=== PATIENT | female | born 1950 | race Caucasian/White ===

== ENCOUNTER 2019-11-23 07:08 | Inpatient (IN) | payer MEDICARE, BC ==
[~2019-11-23 07:08] MED LIST: Isosulfan Blue 5 ML SDV ONE
[2019-11-23] MEDS ORDERED: Naloxone 0.4 MG/ML SDV IVPUSH PRN (07:21)
[2019-11-23] MEDS ORDERED: Naloxone 0.4 MG/ML SDV IV PRN (07:26)
[2019-11-23] MEDS ORDERED: Acetaminophen 500 MG Tab PO ONE (07:30)
[2019-11-23] MEDS ORDERED: Dextrose 5%-Lactated Ringers 1,000 ML IV SCH (08:00)
[2019-11-23] MEDS ORDERED: fentaNYL 250 MCG/5 ML SDV ONE (08:24)
[2019-11-23] MEDS ORDERED: Midazolam 1 MG/ML 2 ML SDV ONE (08:25)
[2019-11-23] MEDS ORDERED: Rocuronium 50 MG/5 ML Vial ONE (08:25)
[2019-11-23] MEDS ORDERED: Neostigmine Methylsulfate 1 MG/ML 5 ML Syringe ONE (08:25)
[2019-11-23] MEDS ORDERED: Glycopyrrolate 0.2 MG/ML 5 ML MDV ONE (08:25)
[2019-11-23] MEDS ORDERED: Propofol 200 MG/20 ML SDV ONE (08:25)
[2019-11-23] MEDS ORDERED: Ondansetron 4 MG/2 ML SDV ONE (08:25)
[2019-11-23] MEDS ORDERED: Ketamine 500 MG/5 ML MDV IV SCH (08:30)
[2019-11-23] MEDS ORDERED: Ketamine 50 MG in Sodium Chloride 0.9% 49.5 ML IV SCH (08:30)
[2019-11-23] MEDS ORDERED: Clindamycin Phosphate 900 MG in Sodium Chloride 0.9% 100 ML IV ONE (09:00)
[2019-11-23] MEDS ORDERED: fentaNYL/Normal Saline 600 MCG/30 ML PCA Vial IV PRN (09:00)
[2019-11-23] MEDS ORDERED: Lactated Ringers 1,000 ML ONE (11:36)
[2019-11-23] MEDS ORDERED: Scopolamine 1.5 MG Transdermal Patch ONE (12:12)
[2019-11-23] MEDS ORDERED: Mupirocin Oint 22 GM Tube ONE (12:19)
[2019-11-23] MEDS ORDERED: hydrOXYzine HCL 100 MG/2 ML SDV IM PRN (14:05)
[2019-11-23] MEDS ORDERED: Cyclobenzaprine 10 MG Tab PO PRN (14:06)
[2019-11-23] MEDS ORDERED: Ondansetron 4 MG/2 ML SDV IVPUSH PRN (14:06)
[2019-11-23] MEDS: SCOPOLAMINE PATCH CHECK TOP SCH (15:15)
[2019-11-23] MEDS: Hypromellose 0.3% Ophth Soln 15 ML Bottle EYEBOTH SCH ×2 (15:25→22:07)
[2019-11-23] MEDS: Dextrose 5%-Lactated Ringers 1,000 ML IV SCH (16:35)
[2019-11-23] MEDS: Clindamycin Phosphate 900 MG in Sodium Chloride 0.9% 100 ML IV SCH (17:53)
[2019-11-24] MEDS: Dextrose 5%-Lactated Ringers 1,000 ML IV SCH (01:03)
[2019-11-24] MEDS: Clindamycin Phosphate 900 MG in Sodium Chloride 0.9% 100 ML IV SCH (01:04)
[2019-11-24] MEDS: Hypromellose 0.3% Ophth Soln 15 ML Bottle EYEBOTH SCH ×5 (06:22→21:13)
[2019-11-24] MEDS ORDERED: Sodium Chloride 0.9% 10 ML Syringe IV SCH (07:30)
[2019-11-24] MEDS ORDERED: Acetaminophen 500 MG Tab PO ONE (07:30)
[2019-11-24] MEDS: Aspirin 81 MG Tab.EC PO SCH (08:36)
[2019-11-24] MEDS: SCOPOLAMINE PATCH CHECK TOP SCH (08:37)
[2019-11-24] MEDS: Mupirocin Oint 22 GM Tube TOP SCH (08:41)
[2019-11-24] MEDS: Acetaminophen 325 MG Tab PO SCH ×2 (14:14→19:47)
[2019-11-24] MEDS: oxyCODONE 5 MG Tab PO PRN (18:32)
[2019-11-25] MEDS: Acetaminophen 325 MG Tab PO SCH ×4 (01:54→20:11)
[2019-11-25] MEDS: Hypromellose 0.3% Ophth Soln 15 ML Bottle EYEBOTH SCH ×4 (06:13→22:38)
[2019-11-25] MEDS: oxyCODONE 5 MG Tab PO PRN ×2 (07:23→20:11)
--- NOTE | 2019-11-25 08:48 | PN ---
DATE OF SERVICE: 11/25/2019 SUBJECTIVE: Jenn is postoperative day #2. She has been up ambulating. Pain has been controlled with oxycodone as well as Tylenol. She has begun to be taught how to do her WILLIAM drain at home. Vital signs have been stable. Temp max of 99.2. Oral intake 1400, urine output 2100. WILLIAM drains have put out a light red drainage of 25, 40, 59, and 26 respectively. REVIEW OF SYSTEMS: Remainder of review of systems negative for any pertinent positives and negatives. OBJECTIVE: GENERAL: Jenn is a pleasant 68-year-old female. Alert, orientated, color pale. VITAL SIGNS: TPR is 98.6, 81, 16, blood pressure 104/48. HEENT: Negative. NECK: Supple. HEART: Regular rate and rhythm. LUNGS: Clear. SKIN: Dressings were removed. Staple lines on right and left mastectomy sites intact. There has been no drainage. WILLIAM drains x4 intact and draining as above. ABDOMEN: Negative. EXTREMITIES: Without peripheral edema. ASSESSMENT: Bilateral modified radical mastectomy with sentinel lymph node biopsy, bilateral injection procedure for sentinel lymph nodes. Postoperative diagnosis: Cancer, right breast, hot family history of breast cancer. Date of surgery: 11/23/2019. Surgeon: Jordan Kaufman MD. PLAN: 1. Dressing was removed. 2. Communication order 2 written for the patient to be taught how to strip, drain, measure, and record WILLIAM drains separately. Continue same treatment plan. 3. Planned discharge in aKameron Rm PA-C /[id number]
[2019-11-25] MEDS: Mupirocin Oint 22 GM Tube TOP SCH (10:01)
[2019-11-25] MEDS: SCOPOLAMINE PATCH CHECK TOP SCH (10:01)
[2019-11-25] MEDS: Aspirin 81 MG Tab.EC PO SCH (10:01)
[2019-11-25] MEDS ORDERED: Magnesium Hydroxide 400 MG/5 ML Susp 30 ML Cup PO PRN (12:01)
[2019-11-25] MEDS ORDERED: Magnesium Hydroxide 400 MG/5 ML Susp 30 ML Cup PO ONE (13:00)
[2019-11-25] MEDS ORDERED: Bisacodyl 5 MG Tab PO ONE (13:00)
[2019-11-26] MEDS: Acetaminophen 325 MG Tab PO SCH ×2 (02:18→08:48)
[2019-11-26] MEDS: Hypromellose 0.3% Ophth Soln 15 ML Bottle EYEBOTH SCH (05:45)
[2019-11-26] MEDS: oxyCODONE 5 MG Tab PO PRN (05:48)
[2019-11-26] MEDS: SCOPOLAMINE PATCH CHECK TOP SCH (08:49)
[2019-11-26] MEDS: Aspirin 81 MG Tab.EC PO SCH (08:49)
[2019-11-26] MEDS: Mupirocin Oint 22 GM Tube TOP SCH (08:49)
[2019-11-26] MEDS ORDERED: Scopolamine 1.5 MG Transdermal Patch TOP SCH (09:00)
--- NOTE | 2019-11-26 10:41 | PN ---
DATE OF SERVICE: 11/24/2019 The patient is postop day #1 from bilateral mastectomies with sentinel node biopsies. Clinically she has done well overnight. 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 Will order oral pain medication today with some scheduled Tylenol and oxycodone on a p.r.n. basis and saline lock her IV and go to a regular diet. The dressings we will leave in place for today and probably get those off tomorrow, and she may be ready for discharge home tomorrow. Jordan Kaufman MD /[id number]
--- NOTE | 2019-11-26 10:49 | DISCH ---
ADMISSION DIAGNOSES: 1. Right breast cancer. 2. Dyslipidemia. 3. Gastroesophageal reflux disease. 4. Sinan-en-Y gastric bypass surgery. 5. Unspecified surgical malabsorption. 6. B12 deficiency. DISCHARGE DIAGNOSES: Bilateral modified radical mastectomy with sentinel lymph node biopsy, bilateral injection for sentinel lymph node analysis. POSTOPERATIVE DIAGNOSES: 1. Right breast cancer. 2. Family history of breast cancer. Date of surgery: 11/23/2019. Surgeon: Jordan Kaufman MD. HISTORY: Jenn Negro is a pleasant 68-year-old female with a positive biopsy for right breast cancer. After preoperative evaluation and discussion of possible risks and possible complications, and review of family history, Jenn agreed to proceed with surgical procedure. HOSPITAL COURSE: Surgery was on 11/23/2019. She had no operative complications. On postoperative day #1, pain was well controlled, up ambulating, started on a diet. On postoperative day #2, dressing was removed. She was able to shower. Teaching was done for home WILLIAM drain care. On postoperative day #3, she was able to be discharged to home without any complications. PHYSICAL EXAMINATION: GENERAL: Jenn Negro is a 68-year-old female. VITAL SIGNS: Height is 5 feet 1.5 inches, weight is 221 pounds, BMI is 41. TPR is 96.4, 66, 16, blood pressure 119/63. HEENT: Negative. NECK: Supple. HEART: Regular rate and rhythm. LUNGS: Clear. ABDOMEN: Negative. EXTREMITIES: Without peripheral edema. SKIN: Bilateral mastectomy incisions, albina intact. Incisions look good. 4 WILLIAM drains are intact draining a light red drainage of 10, 90, 35 and 10 respectively. No seroma or hematoma is noted on that incision site. DISPOSITION: Discharged to home. CONDITION: Stable and improving. FOLLOWUP: Appointment with Jordan Kaufman MD, at [facility] on 12/02/2019 at 10 a.m. HOME MEDICATIONS: 1. Tylenol 650 mg every 6 hours p.r.n. pain. 2. Milk of magnesia 30 mL, take 1 daily for p.r.n. constipation, 2 doses were sent home. 3. Bactroban ointment, sent home with the patient to use a small amount b.i.d. around WILLIAM drain tubing site. 4. Oxycodone 5 mg 1 every 6 hours p.r.n. pain #28. Resume home medications: 1. Aspirin 81 mg oral daily. 2. Caltrate 600 + D3 1 twice daily. 3. B12 2500 mcg sublingual daily. 4. B complex 1 daily. 5. Ferrous sulfate 325 mg daily. 6. Fish oil 2 capsules oral daily. 7. Magnesium oxide 200 mg oral daily. 8. Multivitamin. 9. Centrum Silver Women's tablet 1 daily. 10.Propylene glycol 1 drop in each eye 4 times a day. Discontinue taking the Register while taking oxycodone. Discontinue vitamin D3 gummies to avoid bezoar. DIET: Usual diet as tolerated. Drink 8 to 10 glasses of water a day. ACTIVITY AFTER DISCHARGE: No lifting over 10 pounds for 6 weeks. Other activity after discharge, walk at least 6 times daily. Driving after discharge, do not drive for 1 week and while on pain medication. Shower/bathing, may shower. DISCHARGE INSTRUCTIONS: Notify provider if any fever, increased pain, nausea, or vomiting. Wound incision care, keep site clean and dry. Strip, empty, measure and record WILLIAM drains each separately 4 times a day and bring record of drainage to clinic appointment. Use incentive spirometer 10 times every hour while awake. Notify provider if any fever, increased pain, nausea, or vomiting.
--- NOTE | 2019-11-26 14:24 | OR ---
DATE OF PROCEDURE: 11/23/2019 SURGEON: Jordan Kaufman MD PREOPERATIVE DIAGNOSES: 1. Carcinoma, right breast. 2. Strong family history of breast carcinoma. POSTOPERATIVE DIAGNOSES: 1. Carcinoma, right breast. 2. Strong family history of breast carcinoma. PROCEDURE: Bilateral modified radical mastectomies and sentinel lymph node biopsies (21727 x2 and 05658 x2). ANESTHESIA: General. ELECTRICAL UNIT REBUILDER: Jeanna Rm PA-C INDICATIONS FOR PROCEDURE: A 68-year-old female, recently presenting with abnormal mammogram findings in the right breast. Core biopsy was obtained which showed an infiltrating ductal carcinoma. After preoperative evaluation and discussion, she wished to proceed with a mastectomy with a sentinel lymph node biopsy and more extensive lymph node dissection should the sentinel nodes be positive. The patient has a very strong family history with 8 members on her father's side having breast carcinoma. Genetic testing was negative, but given that very intense family history, her concern is that there may be unidentified direct variant making her family predispose to breast carcinoma, and given this, she is to have a prophylactic mastectomy on the left side. Dickens node biopsy will be done on this side as well as if an occult carcinoma is identified in the left breast with the breast being absent, there is no satisfactory way to do a sentinel lymph node mapping and identification. Potential risks of the procedure including bleeding, infection, obvious cosmetic deformity, possible need for chemotherapy or radiation treatment, and final pathology with remote possibility of cardiopulmonary, septic, or hemorrhagic complications leading to were discussed, and the patient wishes to proceed. DETAILS OF PROCEDURE: The patient was taken to the operating room and placed in a supine position. After general endotracheal anesthesia was induced, additionally 2 mL of Isosulfan and blue dye were injected underneath the lateral aspect of the nipple-areolar complex in the subdermal location. The right breast, axilla, and surrounding areas were then prepped and draped. A transversely oriented elliptical incision was made and carried down through the skin and subcutaneous tissue. This included the biopsy site as well as the area overlying the tumor as well as nipple-areolar complex. Subcutaneous flaps were then raised superiorly, laterally, inferiorly, and medially to the usual extent. As one approached the lateral aspect of the upper incision, the stained lymphatics could be identified and these were then traced down to end of the axilla where grouping of blue-stained nodes was identified. These were excised with electrocautery and sent for frozen section. The frozen section report came back negative for any evidence of metastatic disease. The remainder of the breast was then reflected off the chest wall in continuity with pectoralis major fascia and the area irrigated with saline solution. 2 Nikolai-Rosas drains were then placed inferior to the main incision and draped across the bed of the pectoral muscles and into the axilla. The incision was then closed with some 3-0 Vicryl stitch deep and then albina for the skin. Drains were fixed with some 3-0 nylon stitch. Attention was then taken to the left-side. The area was also prepped and draped and the moist skin had 2 mL of Isosulfan and blue dye injected in the subareolar dermal layer. An identical incision and dissection were then accomplished on the left side. The patient had 1 somewhat more dominant node roughly the size of a grape. This was otherwise soft. This along with some surrounding soft tissues excised and sent for sentinel lymph node biopsy. This node was well stained. This likewise showed no evidence of metastatic tumor. The completion of the mastectomy and closure were then completed identically to the right side and a dressing was applied. The patient was taken to the recovery room in satisfactory condition. Jordan Kaufman MD /[id number]
--- NOTE | 2019-11-27 14:05 | OR ---
DATE OF PROCEDURE: 11/23/2019 SURGEON: Jordan Kaufman MD ADDENDUM: DETAILS OF PROCEDURE: Physician sales operations assistant, Jeanna Rm, played an essential role in assisting in this case helping to position the patient, retract structures as needed, as well as suturing and cutting sutures when indicated. Her presence improved patient safety and decreased the operative time. Jordan Kaufman MD /[id number]
== END 2019-11-26 12:05 | disposition home or self-care (01) | DRG 581 ==
LOC: JP.SDS 07:08 → JP.SDSSCHI 07:08 → EDSTATUS 09:15 → JP.ICU 13:00 → JP.MS 11-24 19:26
PROVIDERS: ADMIT Surgery; ATTEND Surgery
PROC: 0HTV0ZZ Resection of Bilateral Breast, Open Approach (ICD-10-PCS; principal; 2019-11-23)
PROC: 07B60ZX Excision of Left Axillary Lymphatic, Open Approach, Diagnostic (ICD-10-PCS; 2019-11-23)
PROC: 07B50ZX Excision of Right Axillary Lymphatic, Open Approach, Diagnostic (ICD-10-PCS; 2019-11-23)
DX: C50.911 Malignant neoplasm of unspecified site of right female breast (principal); E78.5 Hyperlipidemia, unspecified; K21.9 Gastro-esophageal reflux disease without esophagitis; M85.80 Other specified disorders of bone density and structure, unspecified site; E53.8 Deficiency of other specified B group vitamins; Z79.899 Other long term (current) drug therapy; Z79.82 Long term (current) use of aspirin; Z88.0 Allergy status to penicillin; Z88.5 Allergy status to narcotic agent; Z91.018 Allergy to other foods; Z88.1 Allergy status to other antibiotic agents; Z88.2 Allergy status to sulfonamides; Z88.7 Allergy status to serum and vaccine; Z88.8 Allergy status to other drugs, medicaments and biological substances; Z80.3 Family history of malignant neoplasm of breast
CPT/HCPCS: 88307; 88331; 88332; 88342; 94762; 97161-GP; A9270-GY; J2250; J2405; J2704; J2710; J3010; J3490; J7050; J7120; J7121; Q9968

== ENCOUNTER 2020-01-18 07:30 | Day surgery (SDC) | payer MEDICARE, BC ==
[~2020-01-18 07:30] MED LIST changes: -Isosulfan Blue 5 ML SDV ONE; +Midazolam 1 MG/ML 2 ML SDV ONE; +Propofol 200 MG/20 ML SDV ONE; +fentaNYL 100 MCG/2 ML SDV ONE
[2020-01-18] MEDS ORDERED: Dextrose 5%-Lactated Ringers 1,000 ML IV SCH (08:15)
--- NOTE | 2020-01-25 15:03 | OR ---
DATE OF PROCEDURE: 01/18/2020 SURGEON: Jordan Kaufman MD PREOPERATIVE DIAGNOSIS: Indication for screening colonoscopy. POSTOPERATIVE DIAGNOSIS: A single polyp of proximal sigmoid colon. OPERATIVE PROCEDURE: Flexible colonoscopy with polypectomy by snare technique. ANESTHESIA: IV sedation. INDICATION FOR PROCEDURE: This is a 69-year-old recently diagnosed with breast cancer, who is referred from Medical Oncology for a screening colonoscopy. Potential risks including bleeding and perforation were discussed and the patient wishes to proceed. DETAILS OF PROCEDURE: The patient was taken to the operating room and placed in a left lateral decubitus position. IV sedation was administered, after which the initial digital rectal exam was performed and was unremarkable. The colonoscope was then passed into the rectum with retroflexion revealing uncomplicated hemorrhoidal columns. The scope was eventually passed to the cecum with the prep being fairly good. The patient was noted to have a single polyp in the proximal sigmoid colon. This measured around 3 to 4 mm. Apart from that, there is no diverticular disease, colitis, or other areas of polyps or signs of neoplastic change. The polyp was then encircled at its base with a cautery snare and excised and sent for histologic evaluation. Good hemostasis was noted of the polypectomy site. The scope was then withdrawn and the above findings reconfirmed. Assuming that the present polyp was an adenomatous polyp, the next colonoscopy should be in roughly 2 years. Jordan Kaufman MD /[id number]
== END 2020-01-18 11:14 | disposition home or self-care (01) ==
LOC: JP.SDS 07:30
PROVIDERS: ATTEND Surgery
DX: Z12.11 Encounter for screening for malignant neoplasm of colon (principal); D12.5 Benign neoplasm of sigmoid colon; I10 Essential (primary) hypertension; Z85.3 Personal history of malignant neoplasm of breast; Z90.10 Acquired absence of unspecified breast and nipple
CPT/HCPCS: 45385; 88305; J2250; J2704; J3010; J7121

== ENCOUNTER 2020-03-03 06:52 | Day surgery (SDC) | payer MEDICARE, BC ==
[~2020-03-03 06:52] MED LIST changes: +Acetaminophen 500 MG Tab PO ONE; +Bupivacaine 0.5% 50 ML MDV ONE; +Lidocaine 1% with EPINEPHrine 1:100,000 50 ML MDV ONE; -Midazolam 1 MG/ML 2 ML SDV ONE; -Propofol 200 MG/20 ML SDV ONE; -fentaNYL 100 MCG/2 ML SDV ONE
[2020-03-03] MEDS ORDERED: Ondansetron 4 MG/2 ML SDV ONE (07:09)
[2020-03-03] MEDS ORDERED: fentaNYL 250 MCG/5 ML SDV ONE (07:09)
[2020-03-03] MEDS ORDERED: Propofol 200 MG/20 ML SDV ONE (07:09)
[2020-03-03] MEDS ORDERED: Dexamethasone 4 MG/ML SDV ONE (07:09)
[2020-03-03] MEDS ORDERED: Rocuronium 50 MG/5 ML Vial ONE (07:09)
[2020-03-03] MEDS ORDERED: Neostigmine Methylsulfate 1 MG/ML 5 ML Syringe ONE (07:09)
[2020-03-03] MEDS ORDERED: Succinylcholine 200 MG/10 ML MDV ONE (07:09)
[2020-03-03] MEDS ORDERED: Glycopyrrolate 0.2 MG/ML 5 ML MDV ONE (07:09)
[2020-03-03] MEDS ORDERED: Dextrose 5%-Lactated Ringers 1,000 ML IV SCH (07:15)
[2020-03-03] MEDS ORDERED: Albuterol/Ipratropium 3.0-0.5 MG/3 ML Neb Soln NEB ONE (08:15)
[2020-03-03] MEDS ORDERED: ceFAZolin 2 GM in Premix Bag 1 BAG IV ONE (08:30)
[2020-03-03] MEDS ORDERED: Sodium Chloride 0.9% 0 ML ONE (10:46)
[2020-03-03] MEDS ORDERED: ceFAZolin 1 GM Vial ONE (10:46)
--- NOTE | 2020-03-07 13:21 | OR ---
ADDENDUM: The specimen was 15cm and this includes margins. DATE OF PROCEDURE: 03/03/2020 SURGEON: Jordan Kaufman MD PREOPERATIVE DIAGNOSIS: Dysfunctional right mastectomy scar. POSTOPERATIVE DIAGNOSIS: Dysfunctional right mastectomy scar. OPERATIVE PROCEDURE: Revision of right mastectomy scar (48599, [id number]). ANESTHESIA: General. INDICATION FOR PROCEDURE: The patient is recently status post a right modified radical mastectomy, and on the right side, has been developing painful contracted scar which also has some wires that are casey. It is somewhat protuberant and interfering with patient's arm motion. Given this, this area is to be revised. Potential risks including bleeding, infection, possibility that the revision may not be entirely satisfactory from a functional or comfort standpoint were reviewed, and the patient wishes to proceed. DETAILS TO PROCEDURE: The patient was taken to the operating room and placed in a supine position. General endotracheal anesthesia was induced, after which the right lateral chest wall was prepped and draped. The lines for the incision had been marked preoperatively in both the sitting and upright position, and an elliptical incision was then made and carried down through the skin and subcutaneous tissue. This included extension into a small seroma in the lateral aspect of the mastectomy scar, which was subsequently sutured clean and the tissue, which measured 15 cm, was then eventually excised more or less flush with the underlying musculature. The incision was then closed with 2 layers of 3-0 and 4-0 Vicryl stitch deep and then albina for the skin. Dressing was applied. The patient was taken to the recovery room in satisfactory condition. There were no evident complications. Jordan Kaufman MD /[id number]
== END 2020-03-03 11:30 | disposition home or self-care (01) ==
LOC: JP.SDS 06:52
PROVIDERS: ATTEND Surgery
DX: L91.0 Hypertrophic scar (principal); M96.843 Postprocedural seroma of a musculoskeletal structure following other procedure; E78.5 Hyperlipidemia, unspecified
CPT/HCPCS: 11406; 12035; 36415; 80048; 83735; 84100; 85027; 88304; 94640; A9270; J0330; J0690; J2020; J2405; J2704; J2710; J3010; J3490; J7121; J1100; J7620-GY

== ENCOUNTER 2020-03-15 05:42 | Day surgery (SDC) | payer MEDICARE, BC ==
[2020-03-15] MEDS ORDERED: Lactated Ringers 1,000 ML IV ONE (06:15)
[2020-03-15] MEDS ORDERED: Cyanocobalamin (Vitamin B12) 1,000 MCG/ML SDV IM ONE (06:15)
[2020-03-15] MEDS ORDERED: Glycopyrrolate 0.2 MG/ML 2 ML SDV IVPUSH ONE (06:15)
[2020-03-15] MEDS ORDERED: fentaNYL 100 MCG/2 ML SDV ONE (07:06)
[2020-03-15] MEDS ORDERED: Propofol 200 MG/20 ML SDV ONE (07:06)
[2020-03-15] MEDS ORDERED: MVI, Adult with Vitamin K 10 ML, Thiamine 200 MG, Chromium/Copper/Mang/Selen/Zn 1 ML in... IV ONE ×4 (07:15)
[2020-03-15] MEDS ORDERED: Pantoprazole 40 MG Vial IVPUSH ONE (07:35)
[2020-03-15] MEDS ORDERED: diphenhydrAMINE 50 MG/ML SDV IVPUSH PRN (08:41)
[2020-03-15] MEDS ORDERED: Famotidine 20 MG/2 ML SDV IVPUSH PRN (08:41)
[2020-03-15] MEDS ORDERED: Hydrocortisone Sodium Succinate 100 MG/2 ML SDV IVPUSH PRN (08:41)
[2020-03-15] MEDS ORDERED: methylPREDNISolone Sodium Succinate 125 MG/2 ML SDV IVPUSH ONE (08:58)
[2020-03-15] MEDS ORDERED: Iron Dextran Complex 100 MG/2 ML SDV IM ONE ×2 (09:45→10:45)
[2020-03-15] MEDS ORDERED: Sodium Chloride 0.9% 1,000 ML IV SCH (10:00)
[2020-03-15] MEDS ORDERED: Iron Sucrose Complex 500 MG in Sodium Chloride 0.9% 250 ML IV ONE (10:00)
--- NOTE | 2020-03-27 07:58 | OR ---
DATE OF PROCEDURE: 03/15/2020 SURGEON: Jordan Kaufman MD PREOPERATIVE DIAGNOSIS: Dysphagia, status post previous gastric bypass. POSTOPERATIVE DIAGNOSES: Inflammation and shallow ulcer within the gastric pouch and narrowing of the gastrojejunostomy consistent with a combination of edema and scarring. OPERATIVE PROCEDURE: 1. Upper gastrointestinal endoscopy with dilation of gastrojejunostomy (36693). 2. Biopsies of gastric pouch for CLOtest (20738). ANESTHESIA: IV sedation. INDICATION FOR PROCEDURE: The patient is status post previous Sinan-en-Y gastric bypass presenting with a history of dysphagia referable to the distal esophagus or gastric pouch. Plan is to proceed with upper GI endoscopy with biopsies and/or dilation as indicated. Potential risks including bleeding and perforation were discussed, and the patient wishes to proceed. DETAILS OF PROCEDURE: The patient was taken to the operating room and placed in a left lateral decubitus position. IV sedation was administered, after which the upper GI endoscope was passed orally through the length of esophagus into the gastric pouch, from there through the gastrojejunostomy and roughly 20 cm into the Sinan limb. Findings included normal esophagus and EG junction area. Gastric pouch had some shallow ulcers within it covered with fibrinous exudate. There was some narrowing of the gastrojejunostomy. This appeared to be combination of both some chronic scarring and edema. The Sinan limb beyond that point was unremarkable. At this point, the gastrojejunostomy was dilated with a 54-Polish balloon dilator, after which biopsies were obtained from the gastric pouch and sent for CLOtest for H pylori. Minimal bleeding from the biopsy sites was seen and the procedure was then concluded. One additional aspect in this case was that the mastectomy site was checked and no seroma was evident at this time. The patient was taken to the recovery room in satisfactory condition. Jordan Kaufman MD /[id number]
== END 2020-03-15 12:52 | disposition home or self-care (01) ==
LOC: JP.SDS 05:42
PROVIDERS: ATTEND Surgery
DX: K29.70 Gastritis, unspecified, without bleeding (principal); K25.9 Gastric ulcer, unspecified as acute or chronic, without hemorrhage or perforation; K94.23 Gastrostomy malfunction; E66.9 Obesity, unspecified; Y83.8 Other surgical procedures as the cause of abnormal reaction of the patient, or of later complication, without mention of misadventure at the time of the procedure; Z98.84 Bariatric surgery status; Z90.10 Acquired absence of unspecified breast and nipple; Z68.41 Body mass index [BMI] 40.0-44.9, adult
CPT/HCPCS: 43239; 43245; 87081; C9113; J1750; J2704; J2930; J3010; J3411; J3420; J3490; J7120

== ENCOUNTER 2020-06-22 06:57 | Day surgery (SDC) | payer MEDICARE, BC ==
[~2020-06-22 06:57] MED LIST changes: -Acetaminophen 500 MG Tab PO ONE; +Bupivacaine 0.5% 30 ML SDV ONE; -Bupivacaine 0.5% 50 ML MDV ONE; +Lactated Ringers 1,000 ML IV SCH; -Lidocaine 1% with EPINEPHrine 1:100,000 50 ML MDV ONE; +Nozin Nasal Sanitizer NASBOTH ONE
[2020-06-22] MEDS ORDERED: Clindamycin Phosphate 900 MG in Sodium Chloride 0.9% 100 ML IV ONE (07:30)
[2020-06-22] MEDS ORDERED: fentaNYL 100 MCG/2 ML SDV ONE ×2 (07:33→10:57)
[2020-06-22] MEDS ORDERED: Midazolam 1 MG/ML 2 ML SDV ONE ×2 (07:33→10:00)
[2020-06-22] MEDS ORDERED: Propofol 200 MG/20 ML SDV ONE ×3 (07:34→10:41)
[2020-06-22] MEDS ORDERED: Bupivacaine 0.5% 30 ML SDV ONE ×2 (07:36)
[2020-06-22] MEDS ORDERED: Acetaminophen/oxyCODONE 325-5 MG Tab PO PRN (13:00)
--- NOTE | 2020-06-30 20:31 | OR ---
DATE OF PROCEDURE: 06/22/2020 SURGEON: Mitchel Emerson MD PREOPERATIVE DIAGNOSIS: Chronic right rotator cuff tear with retraction. POSTOPERATIVE DIAGNOSES: 1. Chronic right rotator cuff tear with retraction. 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 3. Mild degeneration of subscapularis. 4. Impingement. PROCEDURE: Arthroscopy, right shoulder with subacromial decompression acromioplasty and arthroscopic repair of rotator cuff. ANESTHESIA: Interscalene block with sedation. INDICATIONS: Jenn is a very pleasant 69-year-old female who has had a known right rotator cuff rupture for the past several months. Due to multiple other medical conditions taking precedence, she has not been able to get this addressed. She now finally presents for repair of right rotator cuff. Risks, benefits, potential complications of the procedure were discussed. DESCRIPTION OF PROCEDURE: After adequate anesthesia was obtained, the patient was placed in lateral decubitus position, secured with the beanbag positioner. Right shoulder and arm were then prepped and draped in a sterile fashion. Right arm was then placed in traction unit with 10 pounds of traction. Standard posterior portal was established. Glenohumeral joint was inspected. This revealed intact articular surface of the glenoid and humeral head. Labrum was intact. Chronic rupture of the long head of the biceps was noted with absence of the biceps attachment. Subscapularis showed some very mild degenerative changes on the superior surface without significant tear. Rotator cuff revealed full-thickness tear with mild to moderate retraction. Scope was removed and placed into the subacromial space. Lateral portal established. Significant impingement was noted against coracoacromial ligament, and using combination of ablation wand and shaver, soft tissues were removed from the undersurface of the acromion. Anterolateral edge of the acromion was delineated and a tabitha was then used to perform acromioplasty removing approximately 45 mm. Attention was then turned to the rotator cuff, which showed a retracted tear of approximately a centimeter and a half. Adequate tissue was available for reconstruction and no significant adhesions were noted with the retraction. Cuff could be mobilized out over the footprint. A tabitha was used to decorticate superior surface of the tuberosity. Shaver was used to roughen the undersurface of the cuff without resecting any of the substance. 2 Mitek Healix anchors were then placed 1 anterior and 1 posterior. All 4 limbs of each of the anchors were then brought up through the cuff using the Mitek Expressew device. These were then tied down from posterior to anterior, reducing the cuff over the footprint. 1 set of sutures from the posterior anchor and 1 set from the anterior anchor were then selected to use for a 2nd row repair. Awl was used to create channel for the anchor and the limbs of the sutures were delivered through the implant. Implant was then positioned and sutures tensioned. This was then secured into position with good fixation. The remaining sutures were then cut. Repair was evaluated, found to be very secure. Arm was taken through internal and external rotation without evidence of any other abnormalities. Shoulder was drained. Scope was withdrawn. Port sites were closed in a standard fashion with 2-0 Vicryl, the fascia layer with 3-0 Monocryl and Steri-Strips. Sterile dressing was then applied. The patient tolerated the procedure well. There were no complications. She was taken from the operating room in stable condition. Mitchel Emerson MD /[id number]
== END 2020-06-22 14:30 | disposition home or self-care (01) ==
LOC: JP.SDS 06:57
PROVIDERS: ATTEND Specialist
DX: M75.121 Complete rotator cuff tear or rupture of right shoulder, not specified as traumatic (principal); S46.111A Strain of muscle, fascia and tendon of long head of biceps, right arm, initial encounter; M75.41 Impingement syndrome of right shoulder; E78.5 Hyperlipidemia, unspecified; Z87.891 Personal history of nicotine dependence; Z88.0 Allergy status to penicillin; Z88.5 Allergy status to narcotic agent; Z88.2 Allergy status to sulfonamides; Z91.09 Other allergy status, other than to drugs and biological substances; Z88.8 Allergy status to other drugs, medicaments and biological substances; Z79.899 Other long term (current) drug therapy; X58.XXXA Exposure to other specified factors, initial encounter
CPT/HCPCS: A9270-GY; C1713; J2250; J2704; J3010; J3490; J7050; J7120

== ENCOUNTER 2022-02-02 06:45 | Day surgery (SDC) | payer MEDICARE, BC ==
[2022-02-02] MEDS ORDERED: fentaNYL 100 MCG/2 ML SDV ONE (06:58)
[2022-02-02] MEDS ORDERED: Midazolam 1 MG/ML 2 ML SDV ONE (06:59)
[2022-02-02] MEDS ORDERED: Propofol 200 MG/20 ML SDV ONE (06:59)
[2022-02-02] MEDS ORDERED: Dextrose 5%-Lactated Ringers 1,000 ML IV SCH (07:15)
== END 2022-02-02 10:00 | disposition home or self-care (01) ==
LOC: JP.SDS 06:45
PROVIDERS: ATTEND Surgery
DX: Z12.11 Encounter for screening for malignant neoplasm of colon (principal); K64.9 Unspecified hemorrhoids; Z86.010 Personal history of colon polyps
CPT/HCPCS: G0105; J2250; J2704; J3010; J7121